=== PATIENT | female | born 1965 | race Caucasian/White ===

== ENCOUNTER 2016-11-03 12:27 | Emergency (ER) | payer MEDICAID ==
[~2016-11-03] VITALS: Ht 162.6 cm; Wt 74.0 kg
[~2016-11-03 12:27] MED LIST: ACET500T98; CYCL-319 PO; FER325 PO; HYDR-3498 PO; HYDR-906 PO; IBUP-1542 PO
[2016-11-03 12:40] VITALS: Ht 162.6 cm; Wt 74.0 kg
[2016-11-03 13:50] LABS: URINE BLOOD (Dip) POC 2+ (NEGATIVE)
[2016-11-03] MEDS ORDERED: HYDROCODONE/APAP (5/325) TAB PO ONE (14:00)
--- NOTE | 2016-11-03 14:20 | ERD ---
ER Documentation Chief Complaint Date/Time DATE: 11/03/16 TIME: 14:16 Chief Complaint Pt with Lower back pain radiates to BLE X 2 days. HPI This is a 51-year-old female who presents to the emergency department today complaining of low back pain for quite some time and worse over the past couple of days. Patient states she also has a cough and has tried taking Robitussin with no improvement. States the cough is worse at night. States she occasionally smokes cigarettes. Denies any fevers or chills. Denies any loss of bowel or bladder control. ROS All systems reviewed and are negative except as per history of present illness. Medications Home Meds Active Scripts Cetirizine Hcl* (Zyrtec*) 10 Mg Capsule, 10 MG PO DAILY, #10 TAB.CHEW Prov:PRINCESS CAMP PA-C 11/03/16 Guaifenesin (Mucinex) 1,200 Mg Tab.er.12h, 1200 MG PO BID for 7 Days, TAB Prov:PRINCESS CAMP PA-C 11/03/16 Naproxen* (Naprosyn*) 500 Mg Tablet, 500 MG PO BID Y for PAIN AND/OR INFLAMMATION, #30 TAB Prov:PRINCESS CAMP PA-C 11/03/16 Tramadol HCl (Tramadol HCl) 50 Mg Tablet, 50 MG PO Q4 Y for PAIN, #20 TAB Prov:PRINCESS CAMP PA-C 11/03/16 Ibuprofen* (Motrin*) 600 Mg Tab, 600 MG PO Q6H Y for PAIN AND OR ELEVATED TEMP, #30 TAB Prov:BECKI ADHIKARI NP 09/15/16 Cyclobenzaprine Hcl* (Cyclobenzaprine Hcl*) 10 Mg Tablet, 10 MG PO TID, #15 TAB Prov:BECKI ADHIKARI NP 09/15/16 Hydrocodone/Acetaminophen ([place] 5-325 Tablet) 1 Each Tablet, 1 TAB PO Q6H Y for PAIN, #20 TAB Prov:BECKI ADHIKARI NP 09/15/16 Ferrous Sulfate* (Ferrous Sulfate*) 325 Mg Tabec, 325 MG PO BID for 60 Days, TAB Prov:SALLY LEW MD 4/11/16 Ibuprofen* (Motrin*) 600 Mg Tab, 600 MG PO Q6, #20 TAB Prov:SALLY LEW MD 01/26/16 Hydrocodone Bit-Acetaminophen* ([place]*) 5-325 Mg Tab, 1 TAB PO Q6 Y for PAIN, # 16 TAB Prov:SALLY LEW MD 01/26/16 Reported Medications [None] No Conflict Check 07/23/11 Acetaminophen (Tylenol) 500 Mg Tab 12/18/09 Allergies Allergies: Coded Allergies: No Known Allergy (Verified , 07/23/11) PMhx/Soc History of Surgery: No Anesthesia Reaction: No Hx Neurological Disorder: No Hx Respiratory Disorders: No Hx Cardiac Disorders: No Hx Psychiatric Problems: No Hx Miscellaneous Medical Probl: No Hx Alcohol Use: No Hx Substance Use: No Hx Tobacco Use: No Smoking Status: Light tobacco smoker Physical Exam Vitals Vital Signs Date Time Temp Pulse Resp B/P Pulse Ox O2 Delivery O2 Flow Rate FiO2 11/03/16 12:40 98.2 74 18 116/67 100 Physical Exam Const: No acute distress Head: Atraumatic Eyes: Normal Conjunctiva ENT: Normal External Ears, Nose and Mouth. Neck: Full range of motion..~ No meningismus. Resp: Clear to auscultation bilaterally. No loss of breath sounds. No wheezing. Cardio: Regular rate and rhythm, no murmurs Abd: Soft, non tender, non distended. Normal bowel sounds Skin: No petechiae or rashes Back: Midline tenderness and bilateral paraspinal tenderness. Positive straight leg raise right side. Negative straight leg raise left side. Pulses 2+ . Distal neurovascularly intact. Neur: Awake and alert Psych: Normal Mood and Affect Results 24 hrs Laboratory Tests Test 11/03/16 13:50 Bedside Urine Blood 2+ Bedside Urine Glucose (UA) Negative Bedside Urine Ketones (LAB) Negative Bedside Urine Leukocyte Esterase (L Negative Bedside Urine Nitrite (LAB) Negative Bedside Urine Protein (LAB) Negative Bedside Urine pH (LAB) 5.5 Current Medications Medications (Trade) Dose Ordered Sig/Boris Route PRN Reason Start Time Stop Time Status Last Admin Dose Admin Acetaminophen/ Hydrocodone Bitart ([place] (5/325)) 1 tab ONCE ONCE PO 11/03/16 14:00 11/03/16 14:01 DC 11/03/16 13:46 DIAGNOSTIC IMAGING REPORT Patient: YANIRA GILES : 1965 Age: 51 Sex: F MR #: [id number] DOS: 11/03/16 0000 Ordering MD: PRINCESS CAMP PA-C Location: [facility] Room/Bed: PROCEDURE: XR Lumbar Spine. CLINICAL INDICATION: Back pain. TECHNIQUE: 2 views. Frontal and lateral. COMPARISON: No prior studies are available for comparison. FINDINGS: There is normal stature and alignment of the vertebrae. There is no fracture. There is no lytic or blastic lesion. There are degenerative changes with small osteophytes throughout. The disk height is normal. The paravertebral soft tissues are unremarkable. IMPRESSION: 1. Unremarkable images of the lumbar spine. RPTAT: QQ .Sally Healy MD, MD Date Time Electronically viewed and signed by .Sally Healy MD, MD on 11/03/2016 14:20 .R/ CC: PRINCESS CAMP PA-C Procedures/MDM This 51-year-old female who presents to the emergency department today complaining of low back pain for quite some time. Patient was seen here in August of last year with similar complaints. She did not have images at that time. Given Continued symptoms for the patient I did obtain imaging. Also obtained a UA. UA is negative for infection. There is 2+ blood. Patient indicated she is currently on her menstrual cycle. Images of the lumbar spine show degenerative changes with small osteophyte throughout the spine. Disc height is normal. There is no acute fracture or dislocation. Patient's degenerative changes likely the cause of her chronic back pain. Patient is afebrile and otherwise well-appearing. She has no loss of bowel or bladder control. Low suspicion for abscess, meningitis, cauda equina. She'll be given a prescription for tramadol and Naprosyn. She was also complaining of a cough. Lung exam is benign. Her oxygen saturation is 100%. Lists his physician for pneumonia, PE, abscess, pneumothorax. I do not feel the patient requires laboratory workup or imaging. Patient was instructed to stop smoking. Patient will be given a prescription in for Zyrtec Given That Her Cough Is Worse at Night. I'll Give Her a Prescription for Mucinex Zyrtec. Do Not Feel That the Patient Would Benefit from Antibiotics at This Time. At this time the patient is stable for discharge and outpatient management. Patient should follow up with their PCP in the next 1-2 days. They may return to the emergency department sooner for any persistent or worsening of symptoms. Patient understood and agreed with the plan. Departure Diagnosis: Primary Impression: Back pain Back pain location: low back pain Chronicity: chronic Back pain laterality : bilateral Sciatica presence: with sciatica Sciatica laterality: sciatica of right side Qualified Code: M54.41 - Chronic bilateral low back pain with right-sided sciatica Condition: PRINCESS Wheeler PA-C Nov 03, 2016 14:20
--- NOTE | 2016-11-03 14:21 | RADRPT ---
PROCEDURE: XR Lumbar Spine. CLINICAL INDICATION: Back pain. TECHNIQUE: 2 views. Frontal and lateral. COMPARISON: No prior studies are available for comparison. FINDINGS: There is normal stature and alignment of the vertebrae. There is no fracture. There is no lytic or blastic lesion. There are degenerative changes with small osteophytes throughout. The disk height is normal. The paravertebral soft tissues are unremarkable. IMPRESSION: 1. Unremarkable images of the lumbar spine. RPTAT: QQ .Dale Healy MD, Date Time Electronically viewed and signed by .Dale Healy MD, on 11/03/2016 14:20 .R/
[2016-11-03] MEDS ORDERED: NAPR-260 PO (14:54)
[2016-11-03] MEDS ORDERED: ULT50 PO (14:54)
[2016-11-03] MEDS ORDERED: CETI10CA PO (14:56)
[2016-11-03] MEDS ORDERED: GUAI120011 PO (14:56)
== END 2016-11-03 15:11 | disposition home or self-care (01) ==
LOC: FTE 12:27
DX: M54.41 Lumbago with sciatica, right side (principal); F17.210 Nicotine dependence, cigarettes, uncomplicated
CPT/HCPCS: 72100; 81003; Z7502; Z7610

== ENCOUNTER 2018-07-24 20:23 | Observation (INO) | END 2018-07-27 17:30 | disposition home or self-care (01) ==